=== PATIENT | female | born 1990 | race Hispanic/Latino ===

== ENCOUNTER 2018-04-19 18:54 | Emergency (ER) | payer BC, OTHER ==
[2018-04-19 19:04] VITALS: BP 131/89; PULSE 63; RESP 18; TEMP 98; O2SAT 100
--- NOTE | 2018-04-19 19:50 | ED PDOC ---
HPI: General Adult Time Seen by Provider: 04/19/18 19:20 Chief Complaint (Nursing): Abnormal Skin Integrity Chief Complaint (Provider): finger laceration History Per: Patient Additional Complaint(s): 27 year old left hand dominant female presents to the ED with flap laceration to right fifth digit, onset prior to arrival. Patient reports she was cutting an avocado when she cut her finger. She is able to bend the digit but describes it as sore when she does so. Her tetanus vaccination is UTD. Patient offers no other medical complaints. PMD: none Past Medical History Reviewed: Historical Data, Nursing Documentation, Vital Signs Vital Signs: Last Vital Signs Temp 98.0 F 04/19/18 19:02 Pulse 63 04/19/18 19:02 Resp 18 04/19/18 19:02 BP 131/89 04/19/18 19:02 Pulse Ox 100 04/19/18 20:24 - Medical History PMH: No Chronic Diseases - Surgical History Other surgeries: 3 surgeries on her left hand - Family History Family History: States: No Known Family Hx - Living Arrangements Living Arrangements: With Friends/Others - Social History Current smoker - smoking cessation education provided: No Alcohol: Social Drugs: Denies - Immunization History Hx Tetanus Toxoid Vaccination: Yes - Allergies Allergies/Adverse Reactions: Allergies Allergy/AdvReac Type Severity Reaction Status Date / Time No Known Allergies Allergy Verified 04/19/18 19:02 Review of Systems ROS Statement: Except As Marked, All Systems Reviewed And Found Negative Musculoskeletal: Positive for: Hand Pain (laceration on fifth digit of right hand) Physical Exam - Reviewed Nursing Documentation Reviewed: Yes Vital Signs Reviewed: Yes - Physical Exam Appears: Positive for: Well, Non-toxic, No Acute Distress Head Exam: Positive for: ATRAUMATIC, NORMAL INSPECTION, NORMOCEPHALIC Skin: Positive for: Normal Color. Negative for: Rash Eye Exam: Positive for: Normal appearance Extremity: Positive for: Normal ROM (fifth digit on right hand), Other (1 cm superficial irregularly shaped flap laceration noted to 5th digit overlying PIP on right hand with minimal active bleeding. Flap appears to be viable and well vascularized) Neurologic/Psych: Positive for: Alert, Oriented. 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 Procedure note: Under sterile conditions, wound was anesthetized using 3 cc 1% lidocaine with epi, good anesthesia was achieved. Wound was irrigated with saline and betadine. Wound flap was realigned and reapproximated with 4 simple , interrupted 5-0 nylon sutures. Good wound approximation was achieved, good bleeding control was achieved. Patient tolerated procedure well with no complications. Sterile dressing applied. Patient was given wound care instructed, advised NSAID's prn pain, wound check in 2 days and suture removal in 10-14 days. Scribe Attestation: Documented by Carito Hood, acting as a scribe for Iman Willis PA-C Provider Scribe Attestation: All medical record entries made by the Scribe were at my direction and personally dictated by me. I have reviewed the chart and agree that the record accurately reflects my personal performance of the history, physical exam, medical decision making, and the department course for this patient. I have also personally directed, reviewed, and agree with the discharge instructions and disposition. Disposition - Clinical Impression Clinical Impression: Finger laceration - Patient ED Disposition Is Patient to be Admitted: No Counseled Patient/Family Regarding: Diagnosis, Need For Followup - Disposition Referrals: [facility] [Outside] Disposition: Routine/Home Disposition Time: 20:57 Condition: STABLE Additional Instructions: Keep area clean and dry. Tylenol or advil for pain as needed. Suture removal 10-14 days. Instructions: Laceration Repair With Stitches (DC) Forms: [employer] (Croatian)
== END 2018-04-19 21:03 | disposition home or self-care (01) ==
LOC: H.ER 18:54
DX: S61.216A Laceration without foreign body of right little finger without damage to nail, initial encounter (principal); W26.0XXA Contact with knife, initial encounter; Y93.G1 Activity, food preparation and clean up